=== PATIENT | male | born 1935 | race Caucasian/White ===

== ENCOUNTER 2019-10-19 20:14 | Inpatient (IN) | payer OTHER, MEDICAID, SELFPAY ==
[~2019-10-19] VITALS: Ht 167.6 cm; Wt 68.9 kg
[2019-10-19 20:16] VITALS: BP_SYST 127
[2019-10-19] MEDS ORDERED: LEVO25TA7 PO (21:16)
[2019-10-19] MEDS ORDERED: LORA-258 PO (21:16)
[2019-10-19] MEDS ORDERED: SUCR1TAB78 PO (21:16)
[2019-10-19] MEDS ORDERED: DIPH50CA38 PO (21:16)
[2019-10-19] MEDS ORDERED: AMLO-349 PO (21:16)
[2019-10-19] MEDS ORDERED: TEMA15CA PO (21:16)
[2019-10-19 21:20] LABS: BASOPHILS % (AUTO) 0.6 % (0.0-2.0); EOSINOPHILS # (AUTO) 0.1 K/uL (0.0-0.4); EOSINOPHILS % (AUTO) 1.5 % (0.0-4.0); HEMOGLOBIN 12.6 g/dL (14.0-18.0); LYMPHOCYTES % (AUTO) 15.8 % (20.5-51.5); MEAN CORPUSCULAR HEMOGLOBIN 35 pg (27-31); MEAN CORPUSCULAR HGB CONC 34 % (32-36); MEAN CORPUSCULAR VOLUME 102 fL (79.0-98.0); MONOCYTES # (AUTO) 0.8 K/uL (0.0-1.0); NEUTROPHILS # (AUTO) 4.4 K/uL (1.8-7.7); NEUTROPHILS % (AUTO) 70.1 % (40.0-70.0); PLATELET COUNT (AUTO) 196 K/uL (130-430); RED BLOOD CELL COUNT(AUTO) 3.62 MIL/uL (4.2-6.2); RED CELL DISTRIBUTION WIDTH 15.3 % (9.0-15.0); WHITE BLOOD COUNT (AUTO) 6.3 K/uL (4.8-10.8)
[2019-10-19] MEDS ORDERED: AZITHROMYCIN 500 MG in NS 250 ML IV ONE (21:30)
[2019-10-19] MEDS ORDERED: CEFEPIME 1 GM in D5W 50 ML IV ONE (21:30)
[2019-10-19] MEDS ORDERED: NS 500 ML IV ONE (21:30)
[2019-10-19 21:32] LABS: ANION GAP 8 (5-15); CALCIUM 8.1 mg/dL (8.4-11.0); CHLORIDE 95 mmol/L (98-107); GLUCOSE 116 mg/dL (70-99); POTASSIUM 3.3 mmol/L (3.5-5.1); SODIUM SERUM 129 mmol/L (136-145); UREA NITROGEN, BLOOD 13 mg/dL (8-21)
[2019-10-19 21:34] LABS: INR 1.1 (0.80-1.20); PROTHROMBIN TIME 10.9 SECS (9.5-12.5)
[2019-10-19 21:36] LABS: ALANINE AMINOTRANSFERASE 18 U/L (12-78); ALBUMIN 2.3 g/dL (3.4-4.8); ASPARTATE AMINOTRANSFERASE 20 U/L (10-37); C-REACTIVE PROTEIN QUANT 2.2 mg/dL (0-0.5); LACTATE DEHYDROGENASE 136 U/L (85-227); TOTAL BILIRUBIN 0.9 mg/dL (0.0-1.0)
[2019-10-19 21:56] LABS: BILIRUBIN,URINE NEGATIVE (NEGATIVE); BLOOD, URINE 3+ (NEGATIVE); CLARITY/URINE SL CLOUDY (CLEAR); COLOR,URINE YELLOW (YELLOW); GLUCOSE,URINE NEGATIVE (NEGATIVE); KETONES,URINE NEGATIVE (NEGATIVE); LEUKOCYTE ESTERASE ,URINE 3+ (NEGATIVE); NITRITE, URINE NEGATIVE (NEGATIVE); PROTEIN URINE 2+ (NEGATIVE); UROBILINOGEN,URINE 0.2 (0.2-1.0)
[2019-10-19 22:00] LABS: BACTERIA,URINE MANY /HPF (None Seen); RBC,URINE 20-50 /HPF (0-3); WBC,URINE >100 /HPF (0-3)
[2019-10-19 22:01] LABS: MUCUS,URINE None Seen /LPF (None Seen)
[2019-10-19 22:04] LABS: BARBITURATE, URINE NEGATIVE (NEG <=200); BENZODIAZEPINE, URINE POSITIVE (NEG <=150); CANNABINOID, URINE POSITIVE (NEG <=50); COCAINE, URINE NEGATIVE (NEG <=150); METHAMPHETAMINES SCREEN,URINE NEGATIVE (NEG <=500); OPIATE, URINE NEGATIVE (NEG <=100); PHENCYCLIDINE SCREEN,URINE NEGATIVE (NEG <=25); UR TRICYCLIC ANTIDEPRESSANTS NEGATIVE (NEG <=300); URINE AMPHETAMINE NEGATIVE (NEG <=500); URINE METHADONE NEGATIVE (NEG <=200); URINE OXYCODONE SCREEN NEGATIVE (NEG <=100); URINE PROPOXYPHENE SCREEN NEGATIVE (NEG <=300)
[2019-10-19 22:06] LABS: FREE T4 (FREE THYROXINE) 0.9 ng/dl (0.8-1.5); THYROID STIMULATING HORMONE 24.15 uIu/mL (0.36-3.74)
[2019-10-19] MEDS ORDERED: CEFEPIME 1 GM/VIAL (MAXIPIME) ONE (22:24)
[2019-10-19] MEDS ORDERED: AZITHROMYCIN 500 MG/VIAL (ZITHROMAX) IV ONE (22:25)
[2019-10-19] MEDS ORDERED: HYDROcodone/ACETAMIN 5-325 MG TAB (NORCO/ VICODIN) PO PRN (23:30)
[2019-10-19] MEDS ORDERED: ACETAMINOPHEN 325 MG TABLET PO PRN (23:30)
[2019-10-19] MEDS ORDERED: LEVOFLOXACIN 500 MG/D5W 100 ML IV SCH (23:30)
[2019-10-19 23:45] VITALS: BP_SYST 108
[2019-10-20] MEDS ORDERED: LEVOFLOXACIN 500 MG/D5W 100 ML IV ONE (01:19)
[2019-10-20 08:13] LABS: BASOPHILS % (AUTO) 0.5 % (0.0-2.0); EOSINOPHILS # (AUTO) 0.1 K/uL (0.0-0.4); EOSINOPHILS % (AUTO) 1.6 % (0.0-4.0); HEMATOCRIT 35.3 % (36-54); HEMOGLOBIN 11.8 g/dL (14.0-18.0); LYMPHOCYTES # (AUTO) 0.9 K/uL (1.0-5.5); LYMPHOCYTES % (AUTO) 15.9 % (20.5-51.5); MEAN CORPUSCULAR HEMOGLOBIN 35 pg (27-31); MEAN CORPUSCULAR HGB CONC 33 % (32-36); MEAN CORPUSCULAR VOLUME 104 fL (79.0-98.0); MONOCYTES # (AUTO) 0.8 K/uL (0.0-1.0); MONOCYTES % (AUTO) 13.2 % (1.7-9.3); NEUTROPHILS # (AUTO) 4.1 K/uL (1.8-7.7); NEUTROPHILS % (AUTO) 68.8 % (40.0-70.0); PLATELET COUNT (AUTO) 163 K/uL (130-430); RED CELL DISTRIBUTION WIDTH 15.5 % (9.0-15.0)
[2019-10-20 08:25] VITALS: BP_SYST 128
[2019-10-20 08:33] LABS: ALANINE AMINOTRANSFERASE 16 U/L (12-78); ALBUMIN 1.7 g/dL (3.4-4.8); ANION GAP 7 (5-15); ASPARTATE AMINOTRANSFERASE 22 U/L (10-37); CALCIUM 7.8 mg/dL (8.4-11.0); CHLORIDE 101 mmol/L (98-107); CREATININE 1.41 mg/dL (0.55-1.30); GLUCOSE 98 mg/dL (70-99); POTASSIUM 3.4 mmol/L (3.5-5.1); SODIUM SERUM 131 mmol/L (136-145); TOTAL BILIRUBIN 0.6 mg/dL (0.0-1.0); UREA NITROGEN, BLOOD 11 mg/dL (8-21)
[2019-10-20] MEDS: CEFEPIME 1 GM in D5W 50 ML IV SCH ×2 (09:36→21:06)
[2019-10-20] MEDS: DIPHENHYDRAMINE HCL 50 MG CAPSULE PO SCH ×3 (09:36→21:07)
[2019-10-20] MEDS: LEVOTHYROXINE SODIUM 0.025 MG TABLET PO SCH (09:36)
[2019-10-20] MEDS: SUCRALFATE 1 GM TABLET PO SCH ×2 (09:36→21:07)
[2019-10-20 12:08] VITALS: BP_SYST 118
[2019-10-20 16:05] VITALS: BP_SYST 133
[2019-10-20 19:30] VITALS: BP_SYST 141
[2019-10-20] MEDS: TEMAZEPAM 15 MG CAPSULE PO SCH (21:07)
[2019-10-20] MEDS: HEPARIN SODIUM,PORCINE 5000 UNITS/ML VIAL SUBCUT SCH (21:17)
[2019-10-21 00:12] VITALS: BP_SYST 141
[2019-10-21 00:13] VITALS: BP_SYST 132
[2019-10-21 08:00] VITALS: BP_SYST 120
[2019-10-21] MEDS: SUCRALFATE 1 GM TABLET PO SCH ×2 (09:24→20:22)
[2019-10-21] MEDS: LEVOTHYROXINE SODIUM 0.025 MG TABLET PO SCH (09:24)
[2019-10-21] MEDS: DIPHENHYDRAMINE HCL 50 MG CAPSULE PO SCH ×3 (09:24→20:22)
[2019-10-21] MEDS: HEPARIN SODIUM,PORCINE 5000 UNITS/ML VIAL SUBCUT SCH ×2 (09:24→20:21)
[2019-10-21] MEDS: CEFEPIME 1 GM in D5W 50 ML IV SCH ×2 (09:24→20:21)
[2019-10-21 12:38] VITALS: BP_SYST 135
[2019-10-21 16:50] VITALS: BP_SYST 144
[2019-10-21 20:00] VITALS: BP_SYST 125
[2019-10-21] MEDS: TEMAZEPAM 15 MG CAPSULE PO SCH (20:22)
[2019-10-22 00:15] VITALS: BP_SYST 133
[2019-10-22] MEDS: DIPHENHYDRAMINE HCL 50 MG CAPSULE PO SCH ×3 (08:44→21:42)
[2019-10-22] MEDS: CEFEPIME 1 GM in D5W 50 ML IV SCH ×2 (08:44→21:42)
[2019-10-22] MEDS: SUCRALFATE 1 GM TABLET PO SCH ×2 (08:44→21:42)
[2019-10-22] MEDS: LEVOTHYROXINE SODIUM 0.025 MG TABLET PO SCH (08:44)
[2019-10-22] MEDS: HEPARIN SODIUM,PORCINE 5000 UNITS/ML VIAL SUBCUT SCH ×2 (08:50→21:47)
[2019-10-22 09:04] VITALS: BP_SYST 145
[2019-10-22 12:20] VITALS: BP_SYST 147
[2019-10-22 16:25] VITALS: BP_SYST 139
[2019-10-22 20:00] VITALS: BP_SYST 142
[2019-10-22] MEDS: TEMAZEPAM 15 MG CAPSULE PO SCH (21:42)
[2019-10-23 00:01] VITALS: BP_SYST 130
[2019-10-23 08:00] VITALS: BP_SYST 143
[2019-10-23] MEDS: SUCRALFATE 1 GM TABLET PO SCH (08:40)
[2019-10-23] MEDS: CEFEPIME 1 GM in D5W 50 ML IV SCH (08:40)
[2019-10-23] MEDS: DIPHENHYDRAMINE HCL 50 MG CAPSULE PO SCH (08:41)
[2019-10-23] MEDS: LEVOTHYROXINE SODIUM 0.025 MG TABLET PO SCH (08:41)
[2019-10-23] MEDS: HEPARIN SODIUM,PORCINE 5000 UNITS/ML VIAL SUBCUT SCH (08:47)
[2019-10-23] MEDS ORDERED: LEVO500T89 PO (09:03)
[2019-10-23 11:12] VITALS: BP_SYST 140
[2019-10-23 12:38] VITALS: BP_SYST 146
== END 2019-10-23 13:20 | disposition home or self-care (01) | DRG 871 ==
LOC: SED 20:14 → STU 22:42 → EEVIPCON 22:42 → STU 23:35 → SMU 10-22 08:54
PROVIDERS: ADMIT Internal Medicine Hospice and Palliative Medicine; ATTEND Internal Medicine Hospice and Palliative Medicine
DX: A41.9 Sepsis, unspecified organism (principal); J18.9 Pneumonia, unspecified organism; G93.41 Metabolic encephalopathy; J96.20 Acute and chronic respiratory failure, unspecified whether with hypoxia or hypercapnia; E43 Unspecified severe protein-calorie malnutrition; N39.0 Urinary tract infection, site not specified; N17.9 Acute kidney failure, unspecified; E87.1 Hypo-osmolality and hyponatremia; C61 Malignant neoplasm of prostate; Z20.828 Contact with and (suspected) exposure to other viral communicable diseases; E03.9 Hypothyroidism, unspecified; E87.6 Hypokalemia; I10 Essential (primary) hypertension; K44.9 Diaphragmatic hernia without obstruction or gangrene; F41.9 Anxiety disorder, unspecified; I25.10 Atherosclerotic heart disease of native coronary artery without angina pectoris; Z88.0 Allergy status to penicillin; Z87.440 Personal history of urinary (tract) infections; Z79.899 Other long term (current) drug therapy; Z68.24 Body mass index [BMI] 24.0-24.9, adult
CPT/HCPCS: 36415; 36600; 70450-TC; 71045; 80053; 80307; 81000-TC; 82140-TC; 82550-TC; 82728; 82803-TC; 83605; 83615-TC; 83880; 84439; 84443-TC; 84484; 85025; 85379; 85610-TC; 85730-TC; 86140; 86710; 87040-TC; 87086; 87186-TC; 93005; 96361; 96365; 96375; 99285; G0378; J0456; J0692; J1644; J1956; J7060; Q0163; U0002